=== PATIENT | male | born 2005 | race Two or more races ===

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

== ENCOUNTER 2025-01-29 11:11 | Emergency (ER) | payer OTHER ==
[~2025-01-29] VITALS: Ht 172.7 cm; Wt 94.0 kg
[2025-01-29 11:55] LABS: PLATELET COUNT, AUTOMATED 248 10^3/uL (150-450)
[2025-01-29 12:13] LABS: AMPHETAMINES LEVEL URINE NEGATIVE (NEGATIVE); BENZODIAZEPINES URINE NEGATIVE (NEGATIVE)
[2025-01-29 12:14] LABS: BARBITURATES URINE NEGATIVE (NEGATIVE); CANNABINOIDS URINE NEGATIVE (NEGATIVE); COCAINE METABOLITE URINE NEGATIVE (NEGATIVE); METHADONE URINE NEGATIVE (NEGATIVE); OPIATES URINE NEGATIVE (NEGATIVE); PHENCYCLIDINE URINE NEGATIVE (NEGATIVE)
[2025-01-29 12:15] LABS: ETHYL ALCOHOL (ETHANOL) 0.004 % (0.000-0.010)
[2025-01-29 12:17] LABS: CALCIUM LEVEL 9.3 MG/DL (8.5-10.1); CARBON DIOXIDE LEVEL 22 MMOL/L (20-31); CHLORIDE LEVEL 105 MMOL/L (98-107); CREATININE FOR GFR 0.74 MG/DL (0.70-1.30); GLOMERULAR FILTRATION RATE > 90.0 (>60); POTASSIUM SERUM 4.1 MMOL/L (3.5-5.1); SODIUM LEVEL 141 MMOL/L (136-145)
[2025-01-29] MEDS ORDERED: HOME MED LIST COMPLETE! XX SCH (12:40)
[2025-01-29 13:40] VITALS: BP 125/60; TEMP 97.1; O2SAT 99
== END 2025-01-29 13:50 | disposition home or self-care (01) ==
LOC: EDBD 11:11 → M ED 11:11
DX: G40.89 Other seizures (principal)